=== PATIENT | female | born 1945 | race Asian ===

== ENCOUNTER 2018-07-28 11:15 | Emergency (ER) | payer MEDICARE, OTHER ==
[2018-07-28 11:34] LABS: ADD MAN DIFF? NO
[2018-07-28 11:36] LABS: WHITE BLOOD COUNT 10.5 10^3/ul (4.8-10.8)
[2018-07-28 11:36] LABS: ABNORMAL IP MESSAGE 1; BASOPHILS % 0.4 % (0.0-2.0); EOSINOPHILS # 0.1 10^3/ul (0.0-0.5); HEMATOCRIT 37.7 % (37.0-47.0); HEMOGLOBIN 12.2 g/dl (12.0-16.0); LYMPHOCYTES # 0.6 10^3/ul (0.8-2.9); LYMPHOCYTES % 5.5 % (15.0-51.0); MEAN CORPUSCULAR HEMOGLOBIN 30.7 pg (29.0-33.0); MEAN CORPUSCULAR HGB CONC 32.4 g/dl (32.0-37.0); MEAN CORPUSCULAR VOLUME 94.7 fl (82.0-101.0); MEAN PLATELET VOLUME 10.3 fl (7.4-10.4); MONOCYTE # 0.6 10^3/ul (0.3-0.9); NEUTROPHIL # 9.1 10^3/ul (1.6-7.5); NEUTROPHILS % 86.7 % (39.0-77.0); PLATELET COUNT 191 10^3/UL (140-415); RED BLOOD COUNT 3.98 10^6/ul (4.20-5.40); RED CELL DISTRIBUTION WIDTH 12.1 % (11.5-14.5)
[2018-07-28 11:45] LABS: POSITIVE DIFF @See below
[2018-07-28 11:55] LABS: ALANINE AMINOTRANSFERASE 17 IU/L (13-69); ALBUMIN/GLOBULIN RATIO 1.53; ALKALINE PHOSPHATASE 61 IU/L (42-121); AMYLASE 43 U/L (11-123); ANION GAP 14 (5-13); ASPARTATE AMINO TRANSFERASE 26 IU/L (15-46); BILIRUBIN,INDIRECT 0.8 mg/dl (0-1.1); BILIRUBIN,TOTAL 0.8 mg/dl (0.2-1.3); BLOOD UREA NITROGEN 10 mg/dl (7-20); CALCIUM 9.1 mg/dl (8.4-10.2); CARBON DIOXIDE 22 mmol/L (21-31); CHLORIDE 106 mmol/L (97-110); CREATININE 0.54 mg/dl (0.44-1.00); GLUCOSE 210 mg/dl (70-220); LIPASE 79 U/L (23-300); POTASSIUM 3.8 mmol/L (3.5-5.1); SODIUM 142 mmol/L (135-144); TOTAL PROTEIN 6.6 g/dl (6.1-8.1)
[2018-07-28 11:56] LABS: INR 0.89; PROTIME 12.1 Sec (11.9-14.9); PT RATIO 0.9
[2018-07-28 12:00] LABS: AADO2 Arterial 38.2 mmHg (7.0-24.0); Allen Test ACCEPTAB; Arterial Base Excess -1.7 mmol/L (-3.0-3); Arterial Blood Gas Oxygen Sat 95.7 mmHG (95.0-100.0); Arterial COHb 0.3 % (0.0-3.0); Arterial Fraction of Oxyhgb 95.1 % (93.0-99.0); Arterial HCO3 20.6 mmol/L (22.0-26.0); Arterial MetHb 0.3 % (0.0-1.5); Arterial pCO2 27.9 mmhg (35-45); MODE ROOM AIR; Site Right Radial
[2018-07-28 12:06] LABS: B-TYPE NATRIURETIC PEPTIDE 806 PG/ML (0-125); TROPONIN-I 0.097 ng/ml (0.000-0.120)
[2018-07-28] MEDS: ACETAMINOPHEN 500 MG TAB PO (12:46)
[2018-07-28] MEDS: SODIUM CHLORIDE 0.9% 1L BAG IV* (12:46)
[2018-07-28] MEDS: CEFEPIME 2GM/50 ML (PMX) 50 ML IVPB (12:46)
[2018-07-28] MEDS: VANCOMYCIN 1 GM (PMX) 250 ML IVPB (12:57)
[2018-07-28 13:29] LABS: ADD UMIC YES; UR ASCORBIC ACID NEGATIVE (NEGATIVE); UR BACTERIA FEW /HPF (NONE SEEN); UR BILIRUBIN (Dip) NEGATIVE (NEGATIVE); UR BLOOD (Dip) 1+ mg/dL (NEGATIVE); UR CLARITY CLEAR (CLEAR); UR COLOR COLORLESS (YELLOW); UR GLUCOSE (Dip) 1+ mg/dL (NEGATIVE); UR KETONES (Dip) NEGATIVE (NEGATIVE); UR LEUKOCYTE ESTERASE (Dip) 2+ Leu/ul (NEGATIVE); UR NITRITE (Dip) NEGATIVE (NEGATIVE); UR RBC 1 /HPF (0-5); UR SPECIFIC GRAVITY (Dip) 1.003 (1.003-1.030); UR TOTAL PROTEIN (Dip) NEGATIVE (NEGATIVE); UR UROBILINOGEN (Dip) NEGATIVE (NEGATIVE); UR WBC 42 /HPF (0-5)
== END 2018-07-28 14:00 | disposition left against medical advice (07) ==
LOC: E/R 11:15
DX: A41.9 Sepsis, unspecified organism (principal); R65.20 Severe sepsis without septic shock; N12 Tubulo-interstitial nephritis, not specified as acute or chronic; I10 Essential (primary) hypertension; E11.9 Type 2 diabetes mellitus without complications; Z79.01 Long term (current) use of anticoagulants; Z79.84 Long term (current) use of oral hypoglycemic drugs
CPT/HCPCS: 36415; 36600; 71045; 80053; 81001; 82150; 82803; 83605; 83690; 83880; 84484; 85025; 85610; 85730; 87040; 87086; 87400; 93005; 96374; 96375; 99291-25